=== PATIENT | male | born 1995 | race Caucasian/White ===

== ENCOUNTER 2024-09-22 12:50 | Emergency (ER) | payer SELFPAY ==
[2024-09-22 14:58] LABS: Bacteria/HPF None Seen HPF (None Seen); Bilirubin Negative (Negative); Blood, Urine Negative (Negative); CAUTI Indications for Culture Pelvic or flank pain; Clarity Clear (Clear); Glucose, Urine (Dipstick) Normal (Negative); Ketone, Urine Negative (Negative); Leukocyte Negative Leu/uL (Negative); Nitrite Negative (Negative); Protein, Urine (Dipstick) Negative (Neg-Trace); RBC/HPF 0-3 HPF (0-3); Specific Gravity, Urine 1.022 (1.002-1.036); Squamous Epithelial None Seen HPF (0-3); Urobilinogen Normal mg/dL (Less than 2); WBC/HPF 0-3 HPF (0-3); pH, Urine 5.5 (5.0-9.0)
[2024-09-22 14:59] LABS: Urine Culture Reflex No No
[2024-09-22 15:05] LABS: Amphetamine Not Detected (NotDetected); Barbiturates Screen Not Detected (NotDetected); Benzodiazepine Screen Not Detected (NotDetected); Cocaine Metabolite Screen Not Detected (NotDetected); Methadone Not Detected (NotDetected); Methamphetamine Not Detected (NotDetected); Opiate Screen Not Detected (NotDetected); Oxycodone Screen Not Detected (NotDetected); Phencyclidine (PCP) Not Detected (NotDetected); THC/Cannabinoid Screen Not Detected (NotDetected); Tricyclic Screen Not Detected (NotDetected)
[2024-09-22] MEDS ORDERED: Cephalexin 250 MG CAP ONE (18:08)
== END 2024-09-22 19:00 | disposition home or self-care (01) ==
LOC: ERS 12:50
DX: S61.012A Laceration without foreign body of left thumb without damage to nail, initial encounter (principal); Z23 Encounter for immunization; Z55.6 Problems related to health literacy; W20.8XXA Other cause of strike by thrown, projected or falling object, initial encounter; Y93.89 Activity, other specified
CPT/HCPCS: 80306; 81001; 96372; 99283

== ENCOUNTER 2024-09-23 12:22 | Emergency (ER) | payer SELFPAY ==
[2024-09-23] MEDS ORDERED: Dexamethasone 20 MG/5 ML VIAL ONE (12:38)
[2024-09-23] MEDS ORDERED: Lidocaine 1% PF 5 ML VIAL ONE (12:38)
[2024-09-23] MEDS ORDERED: Ondansetron PF 4 MG/2 ML Vial ONE (12:38)
[2024-09-23] MEDS ORDERED: Bupivacaine PF 0.5% 30 ML VIAL ONE (12:39)
[2024-09-23] MEDS ORDERED: fentaNYL PF 100 MCG/2 ML SYRINGE ONE (12:39)
[2024-09-23] MEDS ORDERED: PROPOFOL 20 ML ONE ×2 (12:39→14:04)
[2024-09-23] MEDS ORDERED: Midazolam HCl 2 mg/2 ml Vial ONE (12:39)
[2024-09-23] MEDS ORDERED: Bacitracin Zinc Ointment 30 gm TUBE ONE (12:39)
[2024-09-23] MEDS ORDERED: Vancomycin 1 GM/200 ML (FROZEN) BAG ONE (13:41)
[2024-09-23] MEDS ORDERED: PHENYLEPHRINE-NS 100 MCG/ML 10 ML SYRINGE ONE ×2 (14:31→14:56)
[2024-09-23] MEDS ORDERED: Glycopyrrolate 0.2 MG/ML 5 ML SYRINGE ONE (14:31)
[2024-09-23] MEDS ORDERED: Ketorolac Tromethamine 30 MG (1 mL) VIAL ONE (15:35)
== END 2024-09-23 15:06 | disposition admitted as inpatient to this hospital (09) ==
LOC: ERS 12:22
DX: S61.012A Laceration without foreign body of left thumb without damage to nail, initial encounter (principal); X58.XXXA Exposure to other specified factors, initial encounter
CPT/HCPCS: 87070; 87205; 99284; J0665; J1100; J1885; J2250; J2405; J2704; J3370-JW